=== PATIENT | male | born 1945 | race Caucasian/White ===

== ENCOUNTER → 2018-01-24 09:52 | Outpatient (CLI) | payer MEDICARE, OTHER ==
[2015-04-22 13:23] VITALS: BMI 30.6
--- NOTE | ~2018-01-24 | ST ---
PATIENT:KENNEDI RAMÍREZ MEDICAL RECORD: [id number] SEX: M LOCATION:[facility] ORDER #: ADMISSION DATE: 01/24/18 AGE OF PATIENT: 72 REFERRING PHYSICIAN: INTERPRETING PHYSICIAN: STONEY FREITAS MD DATE OF SERVICE: 01/24/2018 PROCEDURE: Nuclear Stress Test. INDICATION: Chest pain, hypertension, and hyperlipidemia. DESCRIPTION OF PROCEDURE: He was exercised on the standard Howard protocol for 5 minutes 40 seconds completed due to achievement of maximum target heart rate response with 33.0 mCi of sestamibi injected at peak stress, 11.0 mCi injected previously for rest images. FINDINGS: Gated SPECT reveals preserved ejection fraction at 65% with good wall motion and thickening and brightening throughout all segments. SPECT imaging: Cardiolite was used as myocardial perfusion agent. There is homogeneous uptake throughout all segments at rest and stress with no evidence of inducible ischemia or previous infarction. OVERALL IMPRESSION: 1. This is a normal nuclear stress test with no evidence of inducible ischemia or previous infarction. 2. Gated SPECT reveals preserved ejection fraction at 65%. In this patient with ongoing symptomatology, the current scan does not suggest the presence for hemodynamically significant coronary artery disease. We would evaluate noncardiac etiology of chest pain. TRANSINT:[id number] Voice Confirmation ID: [id number] DOCUMENT ID: [id number] STONEY FREITAS MD at 1718 CC: [id number] DICTATION DATE: 01/24/18 1643 CUSTOMER RETENTION SPECIALIST: 01/25/18 0735 [facility] CLI 01/24/[address] [id number]
[~2018-01-24 09:52] MED LIST: ASPIRIN325 MG PO; BRILINTA90 MG PO; CARDIZEM120 MG; CARDIZEM120 MG PO; COLACE100 MG; COLACE100 MG PO; FISH OIL 1,0001 CA1; FISH OIL 1,0001 CA1 PO; FLOMAX0.4 MG; FLOMAX0.4 MG PO; LIPITOR20 MG PO; LISINOPRIL-HCTZ1 T13; LISINOPRIL-HCTZ1 T13 PO; LODINE400 MG; LODINE400 MG PO; PRILOSEC20 MG PO; PRINIVIL20 MG; PRINIVIL20 MG PO
== END | disposition home or self-care (01) ==
LOC: D.HCCARDIO 09:52
DX: I20.9 Angina pectoris, unspecified (principal)

== ENCOUNTER → 2018-11-30 13:08 | Outpatient (CLI) | payer MEDICARE, OTHER ==
[2015-04-22 13:23] VITALS: BMI 30.6
[~2018-11-30 13:08] MED LIST changes: +ATIVAN0.5 MG PO; +CLARITIN 10 MG10 MG PO; +DORZOLAMIDE-TI1 EACH EACH EYE; +HCTZ25 MG PO; +KAZANO 12.5-1,1 EACH PO; +LIPITOR40 MG PO; -LISINOPRIL-HCTZ1 T13 PO; +LISINOPRIL40 MG PO; +OMEPRAZOLE20 M1; +PLAVIX75 MG PO
--- NOTE | 2018-12-03 09:56 | EC ---
PATIENT:KENNEDI RAMÍREZ DATE OF SERVICE: 11/30/18 SEX: M MEDICAL RECORD: [id number] DATE OF : 49 LOCATION:[facility] AGE OF PATIENT: 73 ADMISSION DATE: 11/30/18 REFERRING PHYSICIAN: INTERPRETING PHYSICIAN: AMELIA MOORE MD ECHOCARDIOGRAM REPORT ECHO CHARGES 4 ECHO COMPLETE Date: 11/30/18 CLINICAL DIAGNOSIS: H/O HTN/CAD ECHOCARDIOGRAPHIC MEASUREMENTS (adult normal given) AC root (d.<3.7cm) 3.8 cm LV Septum d (<1.2 cm> 1.4 cm Valve Excursion 2.3 cm LV Septum (systole) 2.3 cm Left Atria (s.<4.0cm> 4.0 cm LVPW d(<1.2cm) 1.5 cm RV (d.<2.3cm) 2.9 cm LVPW (sytole) 2.2 cm LV diastole(<5.6CM) 5.8 cm MV E-F(>70mm/sec) cm LV systole 2.3 cm LVOT Diameter 2.2 cm MV exc.(>10mm) cm Est.ejection fraction (50-75%) % DOPPLER: LVIT cm/sec A 50.0 cm/sec E 74.0 cm/sec LA cm/sec RVSP 34.0 mmHg LVOT 114 cm/sec AOP1/2T m/s Asc. Ao 162 cm/sec RVOT 88.0 cm/sec RA cm/sec PA 158 cm/sec AV Gradient Peak 11.0 mmHg AV Mean 5.8 mmHg AV Area 2.4 cm MV Gradient Peak 3.8 mmHg MV Mean 1.3 mmHg MV Area cm COMMENTS: OP - HC Cafeteria Worker: 1 AHMET BLACKOE Pile Driving Supervisor: 3 Dr. Nicholas TAPE# PACS Pericardial Effusion N DATE OF SERVICE: 11/30/2018 Adequate 2D, color flow imaging, spectral Doppler, and M-Mode LVH is present. LV internal dimension is normal. Wall motion is normal. EF is greater than or equal to 55%. Aortic valve is sclerotic. There is no evidence of stenosis by Doppler interrogation. Left atrium is upper limits of normal at 4.0 cm. Mitral valve shows no prolapse. Trace MR. Right-sided chambers are grossly normal. Trace TR. ECHOCARDIOGRAM REPORT [id number] KENNEDI RAMÍREZ TRANSINT:[id number] Voice Confirmation ID: [id number] DOCUMENT ID: [id number] AMELIA MOORE MD at 0956 CC: [id number] DICTATION DATE: 12/02/18 0953 SUBSTATION OPERATOR CONVERSION: 12/02/18 1131 DEP CLI 11/30/18 [facility] [address] [id number]
== END | disposition home or self-care (01) ==
LOC: D.HCCECHO 13:08
PROVIDERS: ATTEND Internal Medicine Interventional Cardiology
DX: I07.1 Rheumatic tricuspid insufficiency (principal)

== ENCOUNTER 2019-01-02 12:42 | Outpatient (CLI) | payer MEDICARE, OTHER ==
[~2019-01-02] VITALS: Ht 177.8 cm; Wt 103.0 kg
--- NOTE | ~2019-01-02 | HEMODYNAMI ---
PATIENT:KENNEDI RAMÍREZ MEDICAL RECORD: [id number] : 49 LOCATION:[facility] D.2118 ADMISSION DATE: 01/02/19 Generatedon:01/03/201913:58 Patient name: KENNEDI RAMÍREZ Patient #: [id number] SSN: [id number] : 1945 Date of study: 01/03/2019 Page: Of Hemodynamic Procedure Report Patient Data Patient Demographics Procedure consent was obtained First Name: KENNEDI Gender: Male Last Name: DARRELL : 1945 [facility] Initial: KI Age: 73 year(s) Patient #: [id number] Race: SSN: [id number] Additional ID: [id number] Contact details Address: [place] [address] State: [place] City: [place] Zip code: [address] Past Medical History Allergies: No known allergies Admission Admission Data Admission Date: 01/02/2019 Admission Time: 14:14 Room #: D.8 Lab Results Lab Result Date: 01/03/2019 Lab Result Time: 0:00 Biochemistry Name Units Result Min Max BUN mg/dl 18 --(---*)-- 7 18 Creatinine mg/dl 0.9 --(-*--)-- 0.6 1.3 eGFR ml/min 88.05409 -*(----)-- 90 120 NONAFRICAN CBC Name Units Result Min Max Hematocrit % 38.6 *-(----)-- 42 54 Hemoglobin g/dl 13.4 -*(----)-- 13.5 17.5 Procedure Procedure Types Cath Procedure Diagnostic Procedure [facility] w/Coronaries FFR/IVUS FFR Initial Intra-Coronary IVUS Initial Sedation Charges Moderate Sedation up to 45 minutes PCI Procedure Coronary Stent Coronary Stent Initial Procedure Description Procedure Date Procedure Date: 01/03/2019 Procedure Start Time: 13:01 Procedure End Time: 13:53 Procedure Staff Name Function Albin Dietz MD Performing Physician Liz Carlson RT Monitor Brijesh Szymanski RT Scrub Urmila Joshua RN Nurse Lisa Schmidt RN [employer] Rachael Davis RT Monitor Luz Fair RT Scrub Procedure Data Cath Procedure Fluoroscopy Diagnostic fluoroscopy Total fluoroscopy Time: time: 14.2 min 14.2 min Diagnostic fluoroscopy Total fluoroscopy dose: dose: 1458 mGy 1458 mGy Contrast Material Contrast Material Type Amount (ml) Isovue 300 195 Entry Location Entry Primary Successful Side Size Upsize Upsize Entry Closure [place] ccessful Closure Location (Fr) 1 (Fr) 2 (Fr) Remarks Device Remarks Radial Right 6 Fr Mechanical artery Short Compression Femoral Right 7 Fr Exoseal artery Short Estimated blood loss: 10 ml Diagnostic catheters Device Type Used For End Catheter Placement DIAGNOSTIC [place] 110cm 5 Procedure Fr catheter ([id number]) Procedure Complications No complications Procedure Medications Medication Administration Route Dosage Oxygen etCO2 Nasal cannula 2 l/min Lidocaine 2% added to field 20 Heparin Flush Bag added to field 2 bags (1000units/500ml NS) 0.9% NaCl I.V. 100 ml/hr Radial Cocktail I.A. 1 syringe (Verapamil 2mg/Nitro 400mcg/Heparin 1500units) Versed I.V. 2 mg Fentanyl I.V. 100 mcg Versed I.V. 2 mg Heparin Bolus I.V. 5000 units Fentanyl I.V. 100 mcg Versed I.V. 1 mg Versed I.V. 1 mg Hemodynamics Rest Heart Rate: 85 (bpm) Snapshots Pre Cath Intra NCS Post Cath Vital Signs Time Heart Resp SPO2 etCO2 NIBP (mmHg) Rhythm Pain Sedation Rate (ipm) (%) (mmHg) Status Level (bpm) 12:47:31 70 11 98 0 158/97(115) NSR 0 (11) 10(A) , No pain 12:51:37 74 10 97 0 147/96(119) NSR 0 (11) 10(A) , No pain 12:55:43 83 18 96 25.6 153/98(117) NSR 0 (11) 10(A) , No pain 12:59:51 76 18 95 27.1 143/106(120) NSR 0 (11) 10(A) , No pain 13:03:55 84 11 96 12 152/95(137) NSR 0 (11) 9(A) , No pain 13:08:07 91 13 95 30.2 154/85(126) NSR 0 (11) 9(A) , No pain 13:12:17 86 15 95 30.2 148/96(121) NSR 0 (11) 9(A) , No pain 13:16:24 86 11 96 30.2 146/88(120) NSR 0 (11) 9(A) , No pain 13:20:39 79 13 94 29.4 143/75(132) NSR 0 (11) 10(A) , No pain 13:24:46 84 13 92 25.6 133/89(115) NSR 0 (11) 9(A) , No pain 13:28:50 83 15 96 24.9 140/89(115) NSR 0 (11) 9(A) , No pain 13:32:54 82 16 95 23.4 152/92(112) NSR 0 (11) 9(A) , No pain 13:37:08 80 14 97 33.9 158/80(105) NSR 0 (11) 10(A) , No pain 13:41:22 78 16 96 27.1 135/81(116) NSR 0 (11) 10(A) , No pain 13:45:27 78 18 96 35.4 155/84(110) NSR 0 (11) 10(A) , No pain 13:49:39 80 17 96 13.5 128/85(109) NSR 0 (11) 10(A) , No pain Medications Time Medication Route Dose Verified Delivered Reason Not es Effectiveness by by 12:58:00 Oxygen etCO2 2 l/min Albin Kearns used for Nasal Mirela Joshua RN procedure cannula 12:58:06 Lidocaine 2% added 20ml Albin Talamantes for local to vial Mirela Dietz MD anesthetic field 12:58:12 Heparin Flush added 2 bags Albin Talamantes used for Bag to Mirela Dietz MD procedure (1000units/500ml field NS) 12:58:23 0.9% NaCl I.V. 100 Albin Kearns Per physician ml/hr Mirela Joshua RN 12:59:52 Versed I.V. 2 mg Albin Kearns for sedation Mirela Joshua RN 12:59:58 Fentanyl I.V. 100 mcg Albin Kearns for sedation Mirela Joshua RN 13:02:22 Radial Cocktail I.A. 1 Albin Talamantes for (Verapamil syringe Mirela Dietz MD vasodilation 2mg/Nitro 400mcg/Heparin 1500units) 13:05:03 Versed I.V. 2 mg Albin Kearns for sedation Mirela Joshua RN 13:08:17 Heparin Bolus I.V. 5000 Albin Kearns for rosario ified units Mirela Joshua RN anticoagulation with dr dietz 13:14:52 Fentanyl I.V. 100 mcg Albin Kearns for sedation Mirela Joshua RN 13:21:32 Versed I.V. 1 mg Albin Kearns for sedation Mirela Joshua RN 13:37:00 Versed I.V. 1 mg Albin Kearns for sedation Mirela Joshua RN Procedure Log Time Note 12:10:11 Informed consent obtained and on chart 12:26:13 Procedure Status Urgent Heart Cath (IP). 12:26:15 Lisa Schmidt RN sent for patient. Start room use. 12:26:25 Plan of Care:Hemodynamics will remain stable., Cardiac rhythm will remain stable., Comfort level will be maintained., Respiratory function will remain adequate., Patient/ family verbilizes understanding of procedure., Procedure tolerated without complication., Recovers from procedure without complications.. 12:28:02 Patient allergic to No known allergies 12:28:30 Lab Result : BUN 18 mg/dl 12:28:30 Lab Result : Creatinine 0.9 mg/dl 12:28:30 Lab Result : eGFR NONAFRICAN 88.24741 ml/min 12:28:30 Lab Result : Hemoglobin 13.4 g/dl 12:28:30 Lab Result : Hematocrit 38.6 % 12:31:38 Time tracking: Regular hours (M-F 7:00 - 5:00) 12:37:28 Risk of Mortality: 0.1 12:37:34 Risk of blood transfusion: 1.2 12:37:39 Risk of JENNY: 2.9 12:44:03 Patient received from Med II to CCL 1 Alert and oriented. Tansferred to table in Supine position. 12:44:44 Warm blankets applied, and analia hugger turned on for patient comfort. 12:44:45 Correct patient and procedure confirmed by team. 12:44:50 ECG and BP/O2 sat monitors applied to patient. 12:44:53 Vital chart was started 12:45:12 Rhythm: sinus rhythm 12:45:18 Full Disclosure recording started 12:45:29 - 12:45:35 H&P Date Dictated: 01/03/2019 Within 30 days and on chart.. 12:45:37 Pre-procedure instructions explained to patient. 12:45:38 Pre-op teaching completed and patient verbalized understanding. 12:45:52 Family in patients room. 12:45:55 Patient NPO since Midnight. 12:46:00 Is the patient allergic to Iodine/contrast media? No. 12:46:10 Was the patient premedicated? Yes 12:46:16 Is patient on blood thinner?Yes 12:46:23 ACC The patient was administered the following blood thiners within the last 24 hours: ACCPlavix 12:46:27 Patient diabetic? Yes. 12:46:31 If diabetic: On Metformin? No 12:46:38 ----Pre-sedation anethsthesia assessment.---- 12:46:41 Previous problem with sedation/anesthesia? No ? 12:46:47 Snore? Yes 12:46:51 Sleep apnea? No 12:46:54 Deviated septum? No 12:46:56 Opens mouth fully? Yes 12:46:59 Sticks out tongue? Yes 12:47:03 Airway obstruction? No ? 12:47:16 Dentures? Yes in tight 12:48:02 Pre procedure: right dorsailis pedis pulse 2+ Normal; easily identifiable; not easily obliterated 12:48:10 Modified Jermaine's test Ulnar > 7 seconds. 12:48:28 Patient pain scale 0/10 ?. 12:48:37 IV patent on arrival in left antecubital with 0.9% NaCl at [facility]. 12:48:46 Lab results completed and on chart. 12:49:12 Stress Test: no; N/A ? 12:49:18 Right Radial & Right Groin area was prepped with chlora-prep and draped in sterile fashion 12:49:20 Alarms reviewed by R. N. 12:49:20 Sharps counted by scrub and verified by R.N. 12:51:04 Use device set Radial Dx or PCI 12:51:06 ACIST Syringe (99942) opened to sterile field. 12:51:07 Medline Cath Pack ([id number]) opened to sterile field. 12:51:08 Bag Decanter (2002S) opened to sterile field. 12:51:11 ACIST Hand Control (52830) opened to sterile field. 12:51:12 ACIST Manifold (38104) opened to sterile field. 12:51:13 Tegaderm 4 x 4 (1626W) opened to sterile field. 12:51:14 MBrace Wrist Support (097611551) opened to sterile field. 12:51:17 EMERALD Guide Wire (560-113) opened to sterile field. 12:51:19 SHEATH 6FR RAIN (2999045) opened to sterile field. 12:52:54 ACC Patient presents with Stable Angina CCS Anginal Class 2--Slight limitation of ordinary activity. 12:53:39 ACCPatient has been prescribed/administered the following anti-anginal medication within the last 2 weeks: CLEMENTINA-Inhibitor 12:55:43 IV Extension Set opened to sterile field. 12:58:00 Oxygen 2 l/min etCO2 Nasal cannula was administered by Urmila Joshua RN; used for procedure; Verbal order read back and verified. 12:58:01 Zero performed for pressure channel P1 12:58:06 Lidocaine 2% 20ml vial added to field was administered by Albin Dietz MD; for local anesthetic; Verbal order read back and verified. 12:58:12 Heparin Flush Bag (1000units/500ml NS) 2 bags added to field was administered by Albin Dietz MD; used for procedure; Verbal order read back and verified. 12:58:23 0.9% NaCl 100 ml/hr I.V. was administered by Urmila Joshua RN; Per physician; Verbal order read back and verified. 12:58:56 Physician arrived 12:58:59 --------ALL STOP TIME OUT------ 12:59:00 Final Timeout: patient, procedure, and site verified with staff and physician. All members of the team are in agreement. 12:59:05 Right Radial & Right Groin site verified by team. 12:59:11 Fire Safety Assessment: A--An alcohol-based skin anteseptic being used preoperatively., C--Open oxygen or nitrous oxide is being used., D--An ESU, laser, or fiber-optic light is being used. 12:59:17 Physical assessment completed. ASA score P 2 - A patient with mild systemic disease as per Albin Dietz MD. 12:59:23 2) 60-89 Mildly reduced kidney function, and other findings (as for stage 1) point to kidney disease. 12:59:29 Maximum allowable contrast dose (3.7 X eGFR X 0.75)244 ml. 12:59:35 Sedation plan: IV Moderate Sedation Medication:Versed, Fentanyl 12:59:52 Versed 2 mg I.V. was administered by Urmila Joshua RN; for sedation; Verbal order read back and verified. 12:59:58 Fentanyl 100 mcg I.V. was administered by Urmila Joshua RN; for sedation; Verbal order read back and verified. 13:01:07 Procedure started. 13:01:18 Local anesthetic to right radial artery with Lidocaine 2% by Albin Dietz MD.INITIAL ACCESS ONLY 13:01:58 A 6 Fr Short sheath was inserted into the Right Radial artery 13:02:22 Radial Cocktail (Verapamil 2mg/Nitro 400mcg/Heparin 1500units) 1 syring e I.A. was administered by Albin Dietz MD; for vasodilation; Verbal order read back and verified. 13:02:41 A DIAGNOSTIC [place] 110cm 5 Fr catheter (538398) was advanced over the wire and used for Procedure. 13:03:06 LV gram done using BABIN 13:03:43 EF : 60 % 13:03:49 Injector settings: Ml/sec: 5, Volume: 15, 13:04:07 RCA angiography performed. 13:04:22 Injector settings: Ml/sec: 3, Volume: 6, 13:04:44 Catheter exchanged over wire. 13:05:03 Versed 2 mg I.V. was administered by Urmila Joshua RN; for sedation; Verbal order read back and verified. 13:05:05 GUIDE 6FR EBU 3.5 catheter ([id number]) opened to sterile field. 13:05:37 6 Fr EBU 3.5 guide catheter was inserted over the wire 13:06:04 LCA angiography performed. 13:07:04 INFLATOR Merit BasixCompak (GP0869) opened to sterile field. 13:08:17 Heparin Bolus 5000 units I.V. was administered by Urmila Joshua RN; for anticoagulation; verified with dr dietz Verbal order read back and verified. 13:08:31 CHOICE PT Extra Support 182cm wire (5515295S8) opened to sterile field. 13:10:53 CHOICE PT Extra Support J 300cm guide wire (5021068Y1) opened to steril e field. 13:11:10 CHOICE PT wire advanced. 13:13:12 Pre PCI Site: [facility] mCirc has 100% stenosis. 13:14:04 The EMERGE OTW 1.5 x 20 balloon ([id number]) was advanced and then removed because of failure to cross lesion 13:14:09 Wire removed. 13:14:10 Guide catheter removed. 13:14:25 SHEATH 7FR Sterling (IGR965) opened to sterile field. 13:14:36 GUIDE 7FR AR 2.0 SH catheter ([id number]) opened to sterile field. 13:14:50 Local anesthetic to right femoral artery with Lidocaine 2% by Albin Dietz MD.ADDITIONAL ACCESS 13:14:52 Fentanyl 100 mcg I.V. was administered by Urmila Joshua RN; for sedation; Verbal order read back and verified. 13:15:02 Baseline sample Acquired. 13:15:32 A 7 Fr Short sheath was inserted into the Right Femoral artery 13:15:51 7 Fr AR2SH guide catheter was inserted over the wire 13:18:39 Pre PCI Site: [facility] mRCA has 90% stenosis. 13:18:57 Warden Verrata Plus pressure wire (92929I) opened to sterile field. 13:20:53 FFR/IFR wire advanced. 13:21:26 Wire advanced across lesion. 13:21:32 Versed 1 mg I.V. was administered by Urmila Joshua RN; for sedation; Verbal order read back and verified. 13:21:49 mRCA lesion measured at 0.97 with IFR 13:22:37 Wire removed. 13:23:01 Warden [place] IVUS Catheter (60027I) opened to sterile field . 13:23:17 IVUS catheter advanced over wire. 13:24:44 IVUS pass to RCA lesion performed. 13:25:42 IVUS catheter removed over wire. 13:28:02 IVUS measurement 74 %. 13:29:36 Inflate balloon Inflation number: 1 A EUPHORA 3.5 x 30 Balloon ([id number]) was prepped and advanced across the Mid RCA , then inflated to 17 ELOY for 0:00 (min:sec) . 13:29:46 Inflation number: 2 The EUPHORA 3.5 x 30 Balloon ([id number]) was reinflated across the Mid RCA , to 17 ELOY for 0:00 (min:sec) . 13:30:22 Balloon removed over the wire. 13:31:59 CHOICE PT Extra Support 182cm wire (4531140T9) opened to sterile field. 13:32:26 2ND CHOICE WIRE IS USED AMILCAR WIRE. 13:34:45 Place stent Inflation Number: 3 A JESSICA Rx 4.0 x 38 stent ([id number]) was prepped and advanced across the Mid RCA . The stent was deployed at 19 ELOY for 0:00 (min:sec) . 13:35:22 Stent catheter was removed intact over wire. 13:35:58 AMILCAR WIRE REMOVED. 13:36:53 TR BAND Large ([id number]) opened to sterile field. 13:37:00 Versed 1 mg I.V. was administered by Urmila Joshua RN; for sedation; Verbal order read back and verified. 13:37:30 The JESSICA RX 3.5 x 12 stent ([id number]) was advanced then removed because of failure to cross lesion 13:38:38 The EUPHORA 3.5 x 30 Balloon ([id number]) was advanced and then removed because of failure to cross lesion 13:38:59 ACT drawn and resulted at 263 seconds. (normal therapeutic range 180-24 0 seconds). 13:40:02 Inflate balloon Inflation number: 4 A EUPHORA 3.5 x 15 Balloon ([id number]) was prepped and advanced across the Mid RCA , then inflated to 21 ELOY for 0:00 (min:sec) . 13:40:35 Inflation number: 5 The EUPHORA 3.5 x 15 Balloon ([id number]) was reinflated across the Mid RCA , to 21 ELOY for 0:00 (min:sec) . 13:40:45 Balloon removed over the wire. 13:42:12 The JESSICA RX 3.5 x 12 stent ([id number]) was advanced then removed because of failure to cross lesion 13:42:16 Wire removed. 13:42:17 Guide catheter removed. 13:42:41 EXOSEAL 7Fr (EX700) opened to sterile field. 13:42:59 ZEPHYR REGULAR TR BAND (750828) opened to sterile field. 13:43:23 Sheath removed intact; hemostasis achieved with Exoseal to the Right Femoral artery. 13:43:34 Sheath removed intact; hemostasis achieved with Mechanical Compression to the Right Radial artery. 13:43:38 Procedure ended.(Physican Out) 13:44:14 Contrast amount:Isovue 300 195ml. 13:44:25 Fluoroscopy time 14.20 minutes. 13:44:34 Fluoroscopy dose: 1458 mGy 13:44:34 Flurop Dose total: 1458 13:44:44 Dose Area Product 68913 mGy/cm. 13:44:52 Maximum allowable dose exceeded? No. 13:44:53 Sharps counted by scrub and verified by R.N. 13:44:59 Genoa band inflated with 7cc of air. 13:45:02 Insertion/operative site no bleeding no hematoma. 13:45:07 Post-op/insertion site Right Femoral artery dressed using a 4 x 4 and Tegaderm. 13:45:16 Post right femoral artery:stable 13:45:24 Post right radial artery:stable 13:45:34 Post Procedure Pulses reassessed and unchanged 13:45:40 Post-procedure physical assessment completed. ASA score P 2 - A patient with mild systemic disease as per Albin Dietz MD. 13:45:46 Post procedure rhythm: unchanged. 13:45:52 Estimated blood loss: 10 ml 13:45:55 Post procedure instruction explained to patient.Patient verbalizes understanding. 13:45:57 Patient needs reinforcement of post procedure teaching. 13:47:06 Procedure type changed to Cath procedure, Diagnostic procedure, LHC, LH C w/Coronaries, FFR/IVUS, FFR Initial, Intra-Coronary IVUS Initial, Sedation Charges, Moderate Sedation up to 45 minutes, PCI procedure, Coronary Stent, Coronary Stent Initial 13:47:09 Procedure and supply charges have been captured, reviewed, submitted an d are correct. 13:52:41 Procedure Complication : No complications 13:52:46 Vital chart was stopped 13:52:49 [facility] Findings: MVD- PCI performed (see procedure note) 13:52:56 Operative report dictated upon procedure completion. 13:52:57 See physician's report for complete and final results. 13:53:02 Report given to [facility] II. 13:53:08 Patient transfered to [facility] with Bed. 13:53:13 Procedure ended. 13:53:13 Full Disclosure recording stopped 13:53:22 ACC-PCI Only Patient was given prescriptions, or instructed by Albin Dietz MD to start/continue the following medications upon discharge: Plavix 13:53:26 End room use (Document Last) Intervention Summary Intervention Notes Time ActionType Lesion and Equipment Used Action# Pressure Duration Attributes 13:14:04 Discard EMERGE OTW 1.5 Balloon x 20 balloon ([id number]) 13:29:36 Inflate Mid RCA EUPHORA 3.5 x 1 17 00:00 balloon 30 Balloon ([id number]) 13:29:46 Reinflate Mid RCA EUPHORA 3.5 x 2 17 00:00 balloon 30 Balloon ([id number]) 13:34:45 Place stent Mid RCA JESSICA Rx 4.0 x 3 19 00:00 38 stent ([id number]) 13:37:30 Discard JESSICA RX 3.5 x Stent 12 stent ([id number]) 13:38:38 Discard EUPHORA 3.5 x Balloon 30 Balloon ([id number]) 13:40:02 Inflate Mid RCA EUPHORA 3.5 x 4 21 00:00 balloon 15 Balloon ([id number]) 13:40:35 Reinflate Mid RCA EUPHORA 3.5 x 5 21 00:00 balloon 15 Balloon ([id number]) 13:42:12 Discard JESSICA RX 3.5 x Stent 12 stent ([id number]) Device Usage Item Name Manufacture Quantity Catalog Number [facility] Minimal Lot# / Charge Number Stock Stock Serial# Code ACIST Syringe Acist 1 47791 782206 682059 094366 20 (67961) Medical Systems Inc Medline Cath Medline 1 [id number] 326198 18679 390490 5 Pack ([id number]) Bag Decanter Microtek 1 2001S 688978 68710 305654 5 (2001S) Medical Inc. ACIST Hand Acist 1 24867 071265 710288 477987 5 Control Medical (89069) Systems Inc ACIST Manifold Acist 1 03500 545451 252215 660491 5 (34520) Medical Systems Inc Tegaderm 4 x 4 3M 1 1626W 997062 485756 945575 5 (1626W) MBrace Wrist Advanced 1 140-0250-00 609692 27469 774622 5 Support Vascular (170413029) Dynamics EMERALD Guide Cardinal 1 502-455 722788 983572 165751 5 Wire (502455) Health SHEATH 6FR Cardinal 1 2110346 088840 4275045 641676 5 RAIN (3890040) Health IV Extension Hospira 1 57112-49 834583 49513 827040 5 Set DIAGNOSTIC Terumo 1 405013 799711 830382 605398 5 [place] 110cm 5 Fr catheter (245532) GUIDE 6FR EBU Medtronic 1 [id number] 288662 44018 665088 3 3.5 catheter (YZ8EDI15) INFLATOR Merit Merit 1 GX5808 987047 076849 392100 15 [facility] (DV1655) CHOICE PT [place] 2 [id number] 489164 173464 599849 5 Extra Support Scientific 182cm wire (7225665N2) CHOICE PT [place] 1 [id number] 951444 581206 841444 5 Extra Support Scientific J 300cm guide wire (5494444N3) EMERGE OTW 1.5 [place] 1 [id number] 260911 607662 579180 5 [id number] x 20 balloon Scientific (7541367536) SHEATH 7FR Terumo 1 RPZ772 361682 364330 688639 5 Sterling (UJE680) GUIDE 7FR AR Medtronic 1 [id number] 855279 908953 973850 0 2.0 SH catheter ([id number]) Warden Warden 1 98194I 010719 628006294 458255 5 Verrata Plus pressure wire (41829I) Warden Warden 1 41881U 838202 529978 689528 8 [place] IVUS Catheter (24611T) EUPHORA 3.5 x Medtronic 1 [id number] 140123 508825 933672 5 [id number] 30 Balloon (YNE5504N) JESSICA Rx 4.0 x Medtronic 1 [id number] 990632 8881784 291958 5 [id number] 38 stent ([id number]) TR BAND Large Terumo 1 [id number] 007968 965818 054847 40 (ILQ51HHQ) JESSICA RX 3.5 x Medtronic 1 [id number] 451610 0673096 988473 5 [id number] 12 stent ([id number]) EUPHORA 3.5 x Medtronic 1 [id number] 991511 296161 771953 5 [id number] 15 Balloon ([id number]) EXOSEAL 7Fr Cardinal 1 EX700 093574 093498 090581 5 (EX700) Health ZEPHYR REGULAR Cardinal 1 113856 786202 4803679 653139 5 TR BAND Health (341754) Signature Audit Sabina Stage Time Signature Unsigned Intra-Procedure 01/03/2019 Rachael 1:57:36 PM Ryan RT(R) (CV) Intra-Procedure 01/03/2019 Urmila Joshua RN 1:58:04 PM Intra-Procedure 01/03/2019 Albin Dietz 1:58:27 PM [facility] [address] [place] [address]
[~2019-01-02 12:42] MED LIST changes: -ATIVAN0.5 MG PO; -CLARITIN 10 MG10 MG PO; -DORZOLAMIDE-TI1 EACH EACH EYE; -HCTZ25 MG PO; -KAZANO 12.5-1,1 EACH PO; -LIPITOR40 MG PO; -OMEPRAZOLE20 M1; -PLAVIX75 MG PO
[2019-01-02] MEDS ORDERED: HCTZ25 MG PO (13:12)
[2019-01-02] MEDS ORDERED: OMEPRAZOLE20 M1 (13:12)
[2019-01-02] MEDS ORDERED: ATIVAN0.5 MG PO (13:13)
[2019-01-02] MEDS ORDERED: CLARITIN 10 MG10 MG PO (13:13)
[2019-01-02] MEDS ORDERED: LIPITOR40 MG PO (13:13)
[2019-01-02] MEDS ORDERED: DORZOLAMIDE-TI1 EACH EACH EYE (13:13)
[2019-01-02] MEDS ORDERED: KAZANO 12.5-1,1 EACH PO (13:14)
[2019-01-02 13:39] LABS: CALC OSMOLALITY 284 mosm/kg (275-300); CALCIUM 8.7 mg/dL (8.5-10.1); CARBON DIOXIDE 28.6 mmol/L (21.0-32.0); CHLORIDE - SERUM 107 mmol/L (98-107); GLUCOSE 95 mg/dL (74-106); POTASSIUM - SERUM 3.6 mmol/L (3.5-5.1); SODIUM 142 mmol/L (136-145); UREA NITROGEN 19 mg/dL (7-18); eGFR NON AFRICAN AMERICAN 78 mL/min (90-120)
[2019-01-02 13:56] LABS: ALBUMIN 3.6 g/dL (3.4-5.0); ALKALINE PHOSPHATASE 55 U/L (46-116); ALT (SGPT) 51 U/L (10-68); BILIRUBIN - TOTAL 0.69 mg/dL (0.2-1.3); CKMB 0.6 U/L (0.0-3.6); CREATINE KINASE 66 UL (21-232); PROTEIN - SERUM 7.4 g/dL (6.4-8.2)
[2019-01-02 13:57] LABS: APTT 26.6 SECONDS (22.8-39.4); INR 1.03 (0.85-1.17); TROPONIN-I < 0.017 ng/mL (0.000-0.060)
--- NOTE | 2019-01-02 17:34 | NUR ---
TRANSFER FROM ER BY W/C. ISABELLINTED TO ROOM. CALL LIGHT IN REACH. WILL CONT. PLAN OF CARE.
[2019-01-02 18:00] VITALS: BP 162/89; BMI 32.6
--- NOTE | 2019-01-02 19:00 | NUR ---
RECEIVED BEDSIDE REPORT. PATIENT IS ALERT AND ORIENTED RESTING COMFORTABLY IN BED. RESPIRATIONS ARE EVEN AND UNLABORED. NO S/S OF DISTRESS. NO C/O PAIN. CALL LIGHT WITHIN REACH. WILL CPOC.
[2019-01-02 19:53] LABS: CKMB 0.4 U/L (0.0-3.6); CREATINE KINASE 54 UL (21-232); TROPONIN-I < 0.017 ng/mL (0.000-0.060)
[2019-01-02 20:00] VITALS: BP 150/78
[2019-01-03] VITALS: BP 142/74
[2019-01-03 00:58] LABS: CKMB 0.6 U/L (0.0-3.6); CREATINE KINASE 50 UL (21-232); TROPONIN-I < 0.017 ng/mL (0.000-0.060)
[2019-01-03 04:00] VITALS: BP 141/76
[2019-01-03 06:32] LABS: BASOPHILS 0.4 % (0-2); EOSINOPHILS 2.6 % (0-7); HEMATOCRIT 38.6 % (42.0-54.0); HEMOGLOBIN 13.4 g/dL (13.5-17.5); IMMATURE GRANULOCYTES 0.4 % (0-5); LYMPHOCYTES 29.5 % (15-50); MCH 33.1 pg (26.0-34.0); MCHC 34.7 g/dL (31.0-37.0); MCV 95.3 fL (80.0-100.0); MEAN PLATELET VOLUME 9.8 fL (7.4-10.4); MONOCYTES 12.3 % (2-11); NEUTROPHILS 54.8 % (40-80); PLATELET COUNT 162 10x3/uL (130-400); RBC 4.05 10x6/uL (4.20-6.10); RDW 12.1 % (11.5-14.5); WBC 5.7 10x3/uL (4.8-10.8)
[2019-01-03 06:50] LABS: APTT 28.4 SECONDS (22.8-39.4); INR 1.11 (0.85-1.17); PROTIME 13.8 SECONDS (11.6-15.0)
[2019-01-03 07:15] LABS: CALC OSMOLALITY 287 mosm/kg (275-300); CALCIUM 8.2 mg/dL (8.5-10.1); CARBON DIOXIDE 28.1 mmol/L (21.0-32.0); CHLORIDE - SERUM 107 mmol/L (98-107); CKMB 0.4 U/L (0.0-3.6); CREATINE KINASE 47 UL (21-232); CREATININE - SERUM 0.9 mg/dL (0.6-1.3); GLUCOSE 118 mg/dL (74-106); MAGNESIUM - SERUM 1.9 mg/dL (1.8-2.4); PHOSPHOROUS 3.6 mg/dL (2.5-4.9); POTASSIUM - SERUM 3.4 mmol/L (3.5-5.1); PRO BNP 156 pg/mL (0-125); SODIUM 143 mmol/L (136-145); UREA NITROGEN 18 mg/dL (7-18); eGFR NON AFRICAN AMERICAN 88 mL/min (90-120)
[2019-01-03 07:18] LABS: TROPONIN-I < 0.017 ng/mL (0.000-0.060)
[2019-01-03 08:00] VITALS: BP 150/82
--- NOTE | 2019-01-03 10:38 | NUR ---
TELEMETRY SR. MORPHINE GIVEN FOR C/O C/P. CONSENTS SIGNED FOR [facility]. WILL CONT. PLAN OF CARE.
[2019-01-03 11:36] VITALS: BP 128/75
--- NOTE | 2019-01-03 13:00 | NUR ---
pre-ops given. to laboratory coordinator by bed/
--- NOTE | 2019-01-03 14:08 | CN ---
PATIENT NAME:KENNEDI SILVEIRA MEDICAL RECORD: [id number] : 49 LOCATION:D. D.2118 ADMIT DATE: 01/02/19 ACCOUNT: [id number] CONSULTING PHYSICIAN: STONEY FREITAS MD REFERRING PHYSICIAN: YASIR BALLARD MD DATE OF CONSULTATION: 01/03/2019 DIAGNOSES: 1. Unstable angina. 2. Coronary artery disease. 3. Previous percutaneous transluminal coronary angioplasty stent. 4. Hypertension. 5. Hyperlipidemia. 6. Shortness of breath, dyspnea on exertion. HISTORY OF PRESENT ILLNESS: For the past 2 weeks Mr. Silveira has had increasing episodes of chest pain, chest discomfort compatible with angina just like that of his previous angina, a dull aching sensation across the anterior chest with radiation to his left neck and his jaw. His last cardiac stent was approximately 3 years ago. He has hypertension, hyperlipidemia, family history of coronary artery disease, as well he has had shortness of breath, dyspnea on exertion. It has progressed over the past 2 weeks. PHYSICAL EXAMINATION: CONSTITUTIONAL/GENERAL APPEARANCE: Well nourished, well developed, appears stated age. EYES: Lids and conjunctivae noninjected. No discharge. No pallor. ENT: Lips within normal limit. No cyanosis. No pallor. NECK: Carotid arteries, bilateral normal upstroke. No bruits. No thrills. No jugular venous pressure or distention. CERVICAL LYMPH NODES: Nontender. Nonenlarged. THYROID: Not enlarged. No nodules. CARDIOVASCULAR: Precordial exam, nondisplaced. No heaves or pericardial thrills. Rate and rhythm, regular. Heart sounds, normal S1, normal S2. No S3, no gallop, no rub. Systolic murmur, not heard. Diastolic murmur, not heard. RESPIRATORY: Respiratory effort, unlabored. Normal curvature. No thoracic deformity. No chest wall tenderness. Percussion, resonant. Auscultation, clear. No wheezes, no rales, no rhonchi. ABDOMEN: Soft, nondistended, nontender. No abdominal pain, no vomiting and normal appetite. MUSCULOSKELETAL: No joint tenderness, normal gait, normal tone. SKIN: Warm and dry. REVIEW OF SYSTEMS: The patient reports easy bruising but reports no swollen glands. The patient reports no fever, no night sweats, no significant weight gain, no significant weight loss. No significant exercise tolerance. The patient reports no dry eyes, no irritation, no vision change. Patient reports no difficulty hearing and no ear pain. Patient reports no frequent nose bleeds or nose and sinus problems. Patient reports on arm pain on exertion. No shortness of breath while lying down. No history of heart murmur. Patient reports no cough, no wheezing or coughing up blood. Patient reports no abdominal pain, no vomiting. Normal appetite. No diarrhea and not vomiting blood. No nausea and no constipation. Patient reports no incontinence. No difficulty urinating. No hematuria. No increased frequency. Patient reports no muscle aches. No weakness, no arthralgias, no back pain. No swelling of the CONSULT REPORT [id number] KENNEDI SILVEIRA extremities. Patient reports no abnormal mole, no jaundice, no rashes. Reports no loss of consciousness. No weakness and no numbness. No seizures, dizziness, or headaches. The patient reports no depression, no sleep disturbance, feeling safe in a relationship and no alcohol abuse. Patient reports on fatigue. Reports no runny nose or sinus pressure. No itching, no hives, and no frequent sneezing. OVERALL IMPRESSION: Chest pain compatible with angina in an escalating fashion, now having episodes of rest pain at class IV. We will proceed with coronary angiography as most likely he has recurrent hemodynamically significant disease. TRANSINT:[id number] Voice Confirmation ID: [id number] DOCUMENT ID: [id number] STONEY FREITAS MD at 1408 CC: [id number] DICTATION DATE: 01/03/19 0833 KEY SANDER: 01/03/19 101[address] [facility] [place] [id number] [place] [address]
--- NOTE | 2019-01-03 14:10 | NUR ---
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 RIGHT GROIN STABLE WITHOUT BLEEDING OR HEMATOMA NOTED. TRBAND INTACT TO RIGHT WRIST. WILL CONT. TO MONITOR.
[2019-01-03 14:30] VITALS: Ht 177.8 cm; Wt 103.0 kg
[2019-01-03] MEDS ORDERED: PLAVIX75 MG PO (15:23)
--- NOTE | 2019-01-03 15:25 | NUR ---
UPON ADMIT, PATIENT STATES HE HAS HAD A FLU SHOT ALREADY THIS YEAR.
--- NOTE | 2019-01-03 15:27 | NUR ---
PER DR BALLARD TO DISCHARGE PATIENT.
[2019-01-03 15:53] VITALS: BP 136/75
--- NOTE | 2019-01-03 18:29 | NUR ---
RIGHT WRIST AND GROIN STABLE. IV AND TELEMETRY DCD. DC PLANS GIVEN. UNDERSTANDING VOICED. ESCORTED TO CAR BY W/C.
--- NOTE | 2019-01-04 08:09 | MORECARE ---
CASE MANAGEMENT DISCHARGE SUMMARY PATIENT: KENNEDI RAMÍREZ KI UNIT: [id number] ADM DATE: 01/02/19 AGE: 73 : 49 SEX: M ROOM/BED: D.[facility] AUTHOR: PAMELA,DOC PHYSICIAN: REFERRING PHYSICIAN: YASIR BALLARD MD DATE OF SERVICE: 01/04/19 Discharge Plan Patient Name: KENNEDI RAMÍREZ [facility] [facility] 1945 Planned Disposition: Home Anticipated Discharge Date: 01/03/19 Discharge Date: 01/03/2019 Expected LOS: 1 Initial Reviewer: [email or web address] Initial Review Date: 01/04/2019 Generated: 01/04/19 9:08 am Coverage Notice Reviewer: [email or web address] Татьяна Membreno Notice Issued Date-Time: 01/02/2019 14:35 Notice Type: Medicare Outpatient Observation Notice Notice Delivered To: Patient 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 Original given to patient and placed on chart. Patient Name: KENNEDI RAMÍREZ Page [phone] at 0809 All edits/amendments must be made on the electronic document DICTATION DATE: 01/04/19 08 COLLAR STITCHER: PACHE[place] 01/04/19 08 RPT#: [id number] DC DATE:01/03/19 STATUS: DIS IN [facility] [address] [place] [address] END OF REPORT
--- NOTE | 2019-01-04 08:11 | OP ---
PATIENT NAME: KENNEDI RAMÍREZ MEDICAL RECORD: [id number] :49 LOCATION:D.M2 D.2118 ADMISSION DATE:01/02/19 SURGEON: SOTNEY FREITAS MD DATE OF OPERATION: 01/03/2019 PROCEDURES: 1. PTCA stent RCA. 2. Intravascular ultrasound RCA. 3. IFR. 4. Left heart catheterization. 5. Selective coronary angiography. 6. Left ventriculogram. INDICATION: Unstable angina and coronary artery disease. PROCEDURE IN DETAIL: After informed consent was obtained and after a detailed description of the risks, benefits as well as alternative therapies, the patient elected to proceed with angiogram and angioplasty. The right femoral area was prepped and draped in normal sterile fashion. The right femoral artery was cannulated via modified Seldinger technique with placement of 7-Maltese sheath. All catheters exchanged through this sheath. FINDINGS: Left ventriculogram was in standard 30-degree BABIN view, reveals good cardiac wall motion, ejection fraction 55%-60%. SELECTIVE CORONARY ANGIOGRAPHY: 1. Left main is with no significant angiographic disease. 2. Left anterior descending has moderate irregularities, but no flow-limiting stenosis. 3. 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 4. The right coronary has greater than 75% stenosis throughout the mid vessel. PTCA stent of the circumflex. We attempted to cross the total occlusion in the circumflex; however, no wire would cross this, we turned our attention to the RCA. Initially IFR was normal; however, intravascular ultrasound revealed a greater than 70% stenosis in the mid vessel. Clinically, this is the only lesion that would explain his symptomatology. Hence doing his best to the patient, it was our decision to proceed with transcatheter revascularization of the right coronary artery. We stented this with a 4/38 Willy stent. Result was 0% residual stenosis. OVERALL IMPRESSION: Successful percutaneous transluminal coronary angioplasty stent of the right coronary artery going from greater than 75% initial stenosis to 0% residual. TRANSINT:[id number] Voice Confirmation ID: [id number] DOCUMENT ID: [id number] OPERATIVE REPORT [id number] KENNEDI RAMÍREZ STONEY TYLER MD at 0811 CC: [id number] DICTATION DATE: 01/03/19 1341 HARNESS INSPECTOR: 01/03/19 1739 DIS IN 01/03/19 [facility] [address] [place] [address]
== END 2019-01-03 18:30 | disposition home or self-care (01) ==
LOC: OBSVTIME → D.ER 12:42 → D.OPS 12:42 → D.ER 14:14 → D.M2 14:14 → OBSVTIME 14:14 → D.M2 17:33 → EDSTATUS 17:46 → D.ER 18:08 → D.M2 01-03 10:52 → D.SDCHOLD 01-03 10:52 → D.M2 01-03 11:11 → D.SDCHOLD 01-03 11:11 → D.OPS 01-03 18:30 → D.M2 01-03 18:30
PROVIDERS: Internal Medicine Nephrology; ATTEND Emergency Medicine
DX: I25.110 Atherosclerotic heart disease of native coronary artery with unstable angina pectoris (principal); E78.5 Hyperlipidemia, unspecified; I10 Essential (primary) hypertension; R06.02 Shortness of breath; E11.9 Type 2 diabetes mellitus without complications; K21.9 Gastro-esophageal reflux disease without esophagitis; F10.20 Alcohol dependence, uncomplicated; Z85.51 Personal history of malignant neoplasm of bladder